=== PATIENT | female | born 1945 | race Caucasian/White ===

== ENCOUNTER → 2017-05-23 | Outpatient (CLI) | payer MEDICARE, OTHER ==
[~2017-05-23] MED LIST: ASPIRIN E.C. 8181 MG PO; BENICAR40 MG PO; FOLIC ACID800 MCG PO; FOSAMAX 70MG TA70 MG PO; GEMCOR600 MG PO; LASIX 20MG TABL20 MG PO; LIPITOR 40MG TA40 MG PO; LIPITOR20 MG PO; LORTAB 7.5/5001 TAB PO; MAGNESIUM250 M1 PO; MOBIC 7.5MG7.5 MG PO; NATURAL POTASS595 MG PO; NEURONTIN100 MG/CAP PO; PHENERGAN 25 TA25 MG PO; PHENERGAN25 MG RC; SYNTHROID0.075 MG/T PO; TYLENOL 500MG500 MG PO; VITAMIN C500 MG PO; VITAMIND3 5000 PO; XARELTO10 MG PO; ZESTRIL40 MG PO
== END ==
LOC: COL.LAB 11:33
DX: Z01.812 Encounter for preprocedural laboratory examination (principal)